=== PATIENT | male | born 1975 | race Caucasian/White ===

== ENCOUNTER 2020-07-15 15:16 | Emergency (ER) | payer MEDICAID ==
[~2020-07-15] VITALS: Ht 193 cm; Wt 88.6 kg
[2020-07-15 17:22] VITALS: BP 122/80
== END 2020-07-15 17:24 | disposition home or self-care (01) ==
LOC: ER 15:16
DX: M79.642 Pain in left hand (principal); F15.90 Other stimulant use, unspecified, uncomplicated; Z88.0 Allergy status to penicillin
CPT/HCPCS: 99281

== ENCOUNTER 2025-03-03 15:16 | Emergency (ER) | payer MEDICAID ==
[~2025-03-03] VITALS: Ht 182.9 cm; Wt 89.0 kg
[2025-03-03 15:25] VITALS: BP 148/68; PULSE 84; RESP 15; TEMP 97.3; O2SAT 99
[2025-03-03 15:50] LABS: BASOPHILS # (AUTO) 0.1 X10'3 (0-0.2); BASOPHILS % (AUTO) 0.7 % (0-1); EOSINOPHILS # (AUTO) 0.1 X10'3 (0-0.9); EOSINOPHILS % (AUTO) 0.5 % (0-6); HEMATOCRIT 47.1 % (42.0-52.0); HEMOGLOBIN 15.5 g/dl (14.0-17.9); LYMPHOCYTES # (AUTO) 1.8 X10'3 (1.1-4.8); MEAN CORPUSCULAR HEMOGLOBIN 28.2 PG (27.0-31.0); MEAN CORPUSCULAR VOLUME 85.5 FL (78-98); MEAN PLATELET VOLUME 7.1 FL (7.4-10.4); MONOCYTES # (AUTO) 1.1 X10'3 (0-0.9); MONOCYTES % (AUTO) 8.9 % (2-12); NEUTROPHILS # (AUTO) 9.1 X10'3 (1.8-7.7); NEUTROPHILS % (AUTO) 74.9 % (42-75); PLATELET COUNT 377 X10'3 (140-440); RED CELL DISTRIBUTION WIDTH 13.6 % (11.5-14.5); WHITE BLOOD COUNT 12.1 X10'3 (4.5-11.0)
[2025-03-03 16:10] LABS: ALANINE AMINOTRANSFERASE 12 U/L (12-78); ALBUMIN 3.9 G/DL (3.4-5.0); ALBUMIN/GLOBULIN RATIO 1.1 (1.1-1.5); ALKALINE PHOSPHATASE 81 IU/L (46-116); ANION GAP 9 (8-16); ASPARTATE AMINO TRANSFERASE 16 U/L (10-37); BILIRUBIN,TOTAL 0.4 MG/DL (0.1-1.0); BLOOD UREA NITROGEN 17 MG/DL (7-18); CALCIUM 9.4 MG/DL (8.5-10.1); CHLORIDE 103 MMOL/L (99-107); GLUCOSE 107 MG/DL (70-104); LIPASE 26 U/L (16-77); POTASSIUM 3.8 MMOL/L (3.5-5.1); SODIUM 140 MMOL/L (135-145); TOTAL CARBON DIOXIDE 28.5 MMOL/L (24-32); TOTAL PROTEIN 7.4 G/DL (6.4-8.2)
[2025-03-03 16:35] LABS: BUN/CREATININE RATIO 12.6 (10.0-20.0); CREATININE 1.35 MG/DL (0.60-1.10); eCRCL 73 ML/MIN; eGFR 56 ML/MIN
== END 2025-03-03 19:59 | disposition left against medical advice (07) ==
LOC: ER 15:16
DX: N50.812 Left testicular pain (principal); Z88.0 Allergy status to penicillin; F15.90 Other stimulant use, unspecified, uncomplicated
CPT/HCPCS: 36415; 76870; 80053; 83690; 85025; 93976; 99284